=== PATIENT | female | born 1960 | race Caucasian/White ===

== ENCOUNTER 2019-01-07 20:45 | Emergency (ER) | payer MEDICARE, MEDICAID ==
[~2019-01-07] VITALS: Ht 160 cm; Wt 72.6 kg
[2019-01-07 21:00] VITALS: BP 146/102
[2019-01-07] MEDS ORDERED: methylPREDNISolone SOD SUCC 125 MG/2ML VIAL ONE (21:27)
[2019-01-07] MEDS ORDERED: KETOROLAC TROMETHAMINE INJ 60 MG/2 ML VIAL IM ONE ×2 (21:27→21:30)
[2019-01-07] MEDS ORDERED: HYDROCODONE/APAP 5/325MG 1 EACH TABLET ONE (21:27)
[2019-01-07] MEDS ORDERED: methylPREDNISolone SOD SUCC 125 MG/2ML VIAL IM ONE (21:30)
[2019-01-07] MEDS ORDERED: HYDROCODONE/APAP 5/325MG 1 EACH TABLET PO ONE (21:30)
== END 2019-01-07 22:28 | disposition home or self-care (01) ==
LOC: ER 20:47
DX: M54.41 Lumbago with sciatica, right side (principal)
CPT/HCPCS: 96372 ×2; 99283; J1885; J2930

== ENCOUNTER 2019-06-08 14:12 | Emergency (ER) | payer MEDICARE, OTHER ==
[~2019-06-08] VITALS: Ht 160 cm; Wt 68.0 kg
[2019-06-08 14:15] VITALS: BP 148/90
--- NOTE | 2019-06-08 14:22 | NUR ---
AT BEDSIDE FOR EVAL.
[2019-06-08] MEDS ORDERED: KETOROLAC TROMETHAMINE INJ 60 MG/2 ML VIAL IM ONE (14:30)
[2019-06-08] MEDS ORDERED: KETOROLAC TROMETHAMINE INJ 30 MG/ML VIAL ONE (14:30)
--- NOTE | 2019-06-08 14:50 | NUR ---
Patient discharged to home in stable condition. Written and verbal after care instructions given. Patient verbalizes understanding of instruction.
[2019-06-08] MEDS ORDERED: ONDANSETRON 4 MG TAB.RAPDIS SL ONE (15:00)
[2019-06-08] MEDS ORDERED: HYDROCODONE/APAP 5/325MG 1 EACH TABLET PO ONE (15:00)
== END 2019-06-08 14:51 | disposition home or self-care (01) ==
LOC: ER 14:19
DX: M54.41 Lumbago with sciatica, right side (principal); F17.200 Nicotine dependence, unspecified, uncomplicated; Z60.2 Problems related to living alone
CPT/HCPCS: 96372; 99283; 99406; J1885

== ENCOUNTER 2019-08-01 22:31 | Emergency (ER) | payer MEDICARE, OTHER ==
[~2019-08-01] VITALS: Ht 167.6 cm; Wt 73.9 kg
--- NOTE | 2019-08-01 23:07 | NUR ---
PT A, OX3 AND AMBULATORY. ON THE WAY WALKING PT TO BED 9, PT CHANGED HER MIND AND DECIDED TO LEAVE WITHOUT BEING SEEN BY A DOCTOR. DR CHERRY MADE AWARE.
[2019-08-01 23:35] VITALS: BP 165/90
== END 2019-08-01 23:41 | disposition left against medical advice (07) ==
LOC: ER 22:36
DX: Z53.21 Procedure and treatment not carried out due to patient leaving prior to being seen by health care provider (principal); M79.661 Pain in right lower leg

== ENCOUNTER 2020-08-28 23:11 | Emergency (ER) | payer MEDICARE, OTHER ==
[~2020-08-28] VITALS: Ht 160 cm; Wt 77.1 kg
[2020-08-28 23:27] VITALS: BP 114/101
--- NOTE | 2020-08-28 23:51 | NUR ---
radiology at bedside for xray
[2020-08-29] MEDS ORDERED: METH4TAB3 PO (01:07)
[2020-08-29] MEDS ORDERED: OXYC1TAB12 PO (01:07)
[2020-08-29] MEDS ORDERED: DEXAMETHASONE SOD PHOSPHATE 10 MG/ML VIAL ONE (01:09)
[2020-08-29] MEDS ORDERED: KETOROLAC TROMETHAMINE INJ 30 MG/ML VIAL ONE (01:10)
[2020-08-29] MEDS ORDERED: KETOROLAC TROMETHAMINE INJ 60 MG/2 ML VIAL IM ONE (01:30)
[2020-08-29] MEDS ORDERED: DEXAMETHASONE SOD PHOSPHATE 10 MG/ML VIAL IM ONE (01:30)
== END 2020-08-29 01:23 | disposition home or self-care (01) ==
LOC: ER 23:12
DX: M25.561 Pain in right knee (principal); M54.41 Lumbago with sciatica, right side; F17.200 Nicotine dependence, unspecified, uncomplicated; Z60.2 Problems related to living alone; Z79.899 Other long term (current) drug therapy
CPT/HCPCS: 73502; 96372 ×2; 99284; J1100; J1885

== ENCOUNTER 2020-10-27 20:01 | Emergency (ER) | payer MEDICARE, OTHER ==
[~2020-10-27] VITALS: Ht 160 cm; Wt 74.8 kg
[~2020-10-27 20:01] MED LIST: METH4TAB3 PO; OXYC1TAB12 PO
[2020-10-27] MEDS ORDERED: DEXAMETHASONE SOD PHOSPHATE 10 MG/ML VIAL ONE (20:32)
[2020-10-27] MEDS ORDERED: KETOROLAC TROMETHAMINE INJ 30 MG/ML VIAL ONE (20:33)
[2020-10-27] MEDS ORDERED: HYDROCODONE/APAP 5/325MG TABLET ONE (20:33)
[2020-10-27] MEDS ORDERED: ONDANSETRON 4 MG TAB.RAPDIS ONE (20:33)
[2020-10-27] MEDS: DEXAMETHASONE SOD PHOSPHATE 4 MG/ML VIAL IM ONE (20:43)
[2020-10-27] MEDS: ONDANSETRON 4 MG TAB.RAPDIS SL ONE (20:43)
[2020-10-27] MEDS: HYDROCODONE/APAP 5/325MG TABLET PO ONE (20:43)
[2020-10-27] MEDS: KETOROLAC TROMETHAMINE INJ 60 MG/2 ML VIAL IM ONE (20:43)
[2020-10-27] MEDS ORDERED: NAPR-1164 PO (21:30)
[2020-10-27] MEDS ORDERED: PRED20TA PO (21:30)
--- NOTE | 2020-10-27 21:36 | NUR ---
Patient discharged to home in stable condition. Written and verbal after care instructions given. Patient verbalizes understanding of instruction.
--- NOTE | 2020-10-27 21:36 | NUR ---
PATIENT AMBULATORY WITH A STEADY GAIT.
--- NOTE | 2020-10-27 21:36 | NUR ---
PATIENT IS PICKED UP BY [facility].
--- NOTE | 2020-10-27 21:37 | NUR ---
Patient discharged to home in stable condition. Written and verbal after care instructions given. Patient verbalizes understanding of instruction.
[2020-10-27 21:39] VITALS: BP 135/75
== END 2020-10-27 21:39 | disposition home or self-care (01) ==
LOC: ER 20:01
DX: M54.41 Lumbago with sciatica, right side (principal); F17.200 Nicotine dependence, unspecified, uncomplicated; Z60.2 Problems related to living alone; Z79.899 Other long term (current) drug therapy
CPT/HCPCS: 96372 ×2; 99284; J1100; J1885; Q0162

== ENCOUNTER 2021-02-21 06:11 | Emergency (ER) | payer MEDICARE, OTHER ==
[~2021-02-21] VITALS: Ht 160 cm; Wt 79.4 kg
[~2021-02-21 06:11] MED LIST changes: +NAPR-1164 PO; +PRED20TA PO
--- NOTE | 2021-02-21 06:35 | NUR ---
BIBSELF C/O RLE PAIN R/T CHRONIC SCIATICA DIAGNOSED LAST YEAR. STATES SHE HAS PAIN FROM THE R BUTTOCK DOWN HER ENTIRE LEG. STATES PAIN HAS WORSTENED THE PAST "FEW WEEKS" AND HAS BEEN TAKING PRESCRIBED [place]COS WITH NO RELIEF. PT PLACED ON THE MONITOR BREATHING EVEN AND UNLABORED. ALL VITAL SIGNS STABLE MD WAS AT BEDSIDE.
[2021-02-21] MEDS ORDERED: MORPHINE SULFATE INJ 2 MG/ML DISP.SYRIN ONE (06:52)
[2021-02-21] MEDS ORDERED: MORPHINE SULFATE INJ 4 MG/ML DISP.SYRIN ONE (06:52)
[2021-02-21] MEDS ORDERED: KETOROLAC TROMETHAMINE INJ 30 MG/ML VIAL ONE (06:52)
[2021-02-21] MEDS ORDERED: KETOROLAC TROMETHAMINE INJ 30 MG/ML VIAL IM ONE (07:00)
[2021-02-21] MEDS ORDERED: MORPHINE SULFATE INJ 2 MG/ML DISP.SYRIN IM ONE (07:00)
--- NOTE | 2021-02-21 07:02 | NUR ---
PT TAKEN TO CT
[2021-02-21] MEDS ORDERED: HYDROCODONE/APAP 10/325MG TABLET PO ONE (09:00)
[2021-02-21] MEDS ORDERED: HYDROMORPHONE 1 MG/1 ML DISP.SYRIN IM ONE (09:00)
[2021-02-21] MEDS ORDERED: HYDROMORPHONE 1 MG/1 ML DISP.SYRIN ONE (09:04)
--- NOTE | 2021-02-21 09:23 | NUR ---
The is alert and oriented x4. Denies SOB. Respiration regular and unlabored. Patient discharged to home in stable condition. Written and verbal after care instructions given. Patient verbalizes understanding of instruction.
[2021-02-21 09:24] VITALS: BP 132/84
== END 2021-02-21 09:24 | disposition home or self-care (01) ==
LOC: ER 06:19
DX: M54.41 Lumbago with sciatica, right side (principal); M79.661 Pain in right lower leg; E66.01 Morbid (severe) obesity due to excess calories; Z68.31 Body mass index [BMI] 31.0-31.9, adult; F17.200 Nicotine dependence, unspecified, uncomplicated; Z60.2 Problems related to living alone; Z79.899 Other long term (current) drug therapy
CPT/HCPCS: 72131; 96372 ×2; 99284; J1170; J1885; J2270 ×2